=== PATIENT | male | born 1935 | race Caucasian/White ===

== ENCOUNTER → 2018-11-06 | Outpatient (CLI) | payer MEDICARE | END | disposition home or self-care (01) | LOC: RAH 13:55 | PROVIDERS: ATTEND Internal Medicine Cardiovascular Disease | DX: J43.9 Emphysema, unspecified (principal); I31.3 Pericardial effusion (noninflammatory); J98.4 Other disorders of lung; I25.10 Atherosclerotic heart disease of native coronary artery without angina pectoris | CPT/HCPCS: 71250 ==

== ENCOUNTER 2020-11-22 06:11 | Day surgery (SDC) | payer MEDICARE ==
[2020-11-18 15:09] LABS: BASOPHILS % (AUTO) 0.7 % (0.0-5.0); EOSINOPHILS % (AUTO) 4.5 % (0.0-8.0); HEMATOCRIT 27.8 % (42-54); LYMPHOCYTES % (AUTO) 21.9 % (21.0-51.0); MEAN CORPUSCULAR HEMOGLOBIN 30.1 pg (27.0-33.0); MEAN CORPUSCULAR HGB CONC 30.6 g/dL (32.0-36.0); MEAN CORPUSCULAR VOLUME 98.6 fL (79-99); MONOCYTES % (AUTO) 11.6 % (3.0-13.0); PLATELET COUNT (AUTO) 386 K/uL (130-400); RED BLOOD CELL COUNT(AUTO) 2.82 MIL/uL (4.50-6.20); RED CELL DISTRIBUTION WIDTH 15.4 % (11.0-15.5); WHITE BLOOD COUNT (AUTO) 8.7 K/uL (4.8-10.8)
[2020-11-18 15:20] LABS: CREATININE 1.8 mg/dL (0.5-1.5); POTASSIUM 4.3 mmol/L (3.5-5.1)
[2020-11-18 15:23] LABS: INR 1.13 (0.85-1.15); PROTHROMBIN TIME 12.2 SEC (9.6-11.6)
[2020-11-18 15:24] LABS: PARTIAL THROMBOPLASTIN TIME 27.4 SEC (26.3-35.5)
[2020-11-19 16:36] VITALS: BP 152/63
[~2020-11-22] VITALS: Ht 185.4 cm; Wt 81.2 kg
[2020-11-22] VITALS (9 sets, daily range): BP systolic 144–186; BP diastolic 46–87
[~2020-11-22 06:11] MED LIST: ACET-2041 PO; CLOP75TA14 PO; FINA5TAB41 PO; FURO20TA4 PO; IPRA6S NASAL; LOSA25TA41 PO; METF-444 PO; MIRA50TA PO; MULT-1289 PO; POTA99TA21 PO; PRIM50TA23 PO; PYRI60TA PO; ROSU5TAB12 PO; TAMS-1 PO; b12; iron PO
[2020-11-22] MEDS ORDERED: CEFAZOLIN SODIUM 1 GM VIAL IVP ONE (08:00)
[2020-11-22] MEDS ORDERED: 0.9%NACL 1000ML 1,000 ML IV SCH (08:00)
[2020-11-22] MEDS ORDERED: LIDOCAINE HCL 1% MDV 50ML VIAL ONE (09:39)
[2020-11-22] MEDS ORDERED: MEPERIDINE-PF 25 MG/ML SYG ONE (09:39)
[2020-11-22] MEDS ORDERED: BUPIVACAINE/PF 0.25% 30ML VIAL IJ ONE (09:39)
[2020-11-22] MEDS ORDERED: MIDAZOLAM HCL 1 MG/ML 2ML VIAL ONE (09:39)
[2020-11-22] MEDS ORDERED: CEFAZOLIN SODIUM 1 GM VIAL ONE (09:39)
[2020-11-22] MEDS ORDERED: TRAM50TA4 PO (11:48)
== END 2020-11-22 15:40 | disposition home or self-care (01) ==
LOC: DAH 06:11
PROVIDERS: ATTEND Internal Medicine Cardiovascular Disease
DX: I44.1 Atrioventricular block, second degree (principal); I45.2 Bifascicular block; E11.22 Type 2 diabetes mellitus with diabetic chronic kidney disease; I12.9 Hypertensive chronic kidney disease with stage 1 through stage 4 chronic kidney disease, or unspecified chronic kidney disease; N18.30 Chronic kidney disease, stage 3 unspecified; E11.40 Type 2 diabetes mellitus with diabetic neuropathy, unspecified; E78.5 Hyperlipidemia, unspecified; I45.89 Other specified conduction disorders; Z79.84 Long term (current) use of oral hypoglycemic drugs; Z79.899 Other long term (current) drug therapy; Z79.01 Long term (current) use of anticoagulants; Z98.890 Other specified postprocedural states
CPT/HCPCS: 33208; 36415; 71045; 80048; 82948 ×2; 85025; 85610; 85730; 93005; A4215; A4216; A4221; A4222; A4223 ×3; A4606; A4663; C1785; C1898 ×2; J0690; J3490 ×2; J7030; 99156; 99157; J2175; J2250